=== PATIENT | male | born 1955 | race Caucasian/White ===

== ENCOUNTER → 2018-05-14 10:45 | Outpatient (CLI) | payer OTHER | END | disposition home or self-care (01) | LOC: D.RT 10:45 | DX: Z02.71 Encounter for disability determination (principal) ==

== ENCOUNTER → 2018-10-01 07:33 | Outpatient (CLI) | payer BC ==
[2018-10-04 13:12] LABS: IMMUNOGLOBULIN E 48 IU/mL (0-100)
== END | disposition home or self-care (01) ==
LOC: D.RT 07:33
PROVIDERS: Internal Medicine Pulmonary Disease
DX: J44.9 Chronic obstructive pulmonary disease, unspecified (principal); D3A.8 Other benign neuroendocrine tumors